=== PATIENT | female | born 1960 | race Caucasian/White ===

== ENCOUNTER 2017-06-22 09:43 | Emergency (ER) | payer BC ==
[~2017-06-22] VITALS: Ht 165.1 cm; Wt 72.7 kg
[~2017-06-22 09:43] MED LIST: CALTRATE-600 W600 MG PO; CELEBREX400 MG PO; CENTRUM1 TAB PO; CEPHALEXIN500 M1 PO; FERROUS SU325 MG/TAB PO; FISH OIL CONC1000 MG PO; FOLIC ACID PO; LEVOTHYROXINE0.1 MG PO; LEXAPRO 10MG10 MG PO; NORCO 325 MG-51 TAB PO; PRAVACHOL10 MG PO; PRILOSEC 20MG20 MG PO; TYLENOL 500MG500 MG PO; VITAMIN C500 MG PO
[2017-06-22 09:49] VITALS: TEMP 97
[2017-06-22 10:12] LABS: BASO % 0.9 % (0.0-2.0); EOS # 0.1 (0.0-0.7); EOS % 1.1 % (0-4.0); GRAN # 2.6 (1.4-6.5); GRAN % 57.7 % (42.2-75.2); HEMATOCRIT 37.3 % (37.0-47.0); HEMOGLOBIN 12.2 g/dl (12.5-16.0); LYMPH # 1.3 (1.2-3.4); LYMPH % 27.7 % (20.0-51.0); MEAN CELL VOLUME 93 fl (80.0-100.0); MEAN CORPUSCULAR HEMOGLOBIN 31 pg (27.0-31.0); MEAN CORPUSCULAR HGB CONC 33 g/dl (33.0-37.0); MEAN PLATELET VOLUME 9.7 fl (7.4-10.4); MONO # 0.6 (0.1-0.6); MONO % 12.2 % (1.7-9.3); PLATELET COUNT 238 K/mm3 (130-400); REDCELL DISTRIBUTION WIDTH-CV 13.5 % (11.5-14.5)
[2017-06-22 10:20] LABS: INR 0.9 (0.8-3.0); PROTHROMBIN TIME 10.7 SECONDS (9.7-12.8)
[2017-06-22 10:22] LABS: PARTIAL THROMBOPLASTIN TIME 36.3 SECONDS (26.0-37.0)
[2017-06-22 10:34] LABS: ALANINE AMINOTRANSFERASE 30 U/L (9-52); ALBUMIN 4.2 gm/dL (3.5-5.0); ALKALINE PHOSPHATASE 92 U/L (50-136); ANION GAP 11 mmol/L (7-16); AST,SGOT 28 U/L (15-37); BILIRUBIN,TOTAL 0.4 mg/dL (0.0-1.0); BLOOD UREA NITROGEN 13 mg/dL (7-17); CALCIUM 9.3 mg/dL (8.4-10.2); CARBON DIOXIDE 27 mmol/L (22-30); CHLORIDE 102 mmol/L (98-107); CREATININE, serum 0.62 mg/dL (0.52-1.25); GLUCOSE 99 mg/dL (74-106); POTASSIUM 3.9 mmol/L (3.4-5.0); SODIUM 140 mmol/L (137-145); TOTAL PROTEIN 7.6 gm/dL (6.4-8.2)
[2017-06-22 10:51] LABS: TROPONIN-I < 0.012 ng/mL (0.000-0.034)
[2017-06-22 13:18] VITALS: BP 119/72; PULSE 63
== END 2017-06-22 13:20 | disposition home or self-care (01) ==
LOC: COL.ER 09:43
PROVIDERS: Family Medicine
DX: R07.9 Chest pain, unspecified (principal); E78.5 Hyperlipidemia, unspecified

== ENCOUNTER → 2020-03-23 | Outpatient (CLI) | payer BC | LOC: MC.RAD 03-08 14:30 | DX: Z12.31 Encounter for screening mammogram for malignant neoplasm of breast (principal) ==

== ENCOUNTER → 2021-06-20 | Outpatient (CLI) | payer BC | LOC: MC.RAD 13:17 | DX: Z12.31 Encounter for screening mammogram for malignant neoplasm of breast (principal) ==

== ENCOUNTER → 2023-07-17 | Outpatient (CLI) | payer BC | LOC: MC.RAD 15:45 | DX: Z12.31 Encounter for screening mammogram for malignant neoplasm of breast (principal) ==